=== PATIENT | female | born 1935 | race Caucasian/White ===

== ENCOUNTER → 2017-03-15 | Outpatient (CLI) | payer MEDICARE, BC | END | disposition home or self-care (01) | LOC: GMAM 14:35 | PROVIDERS: ATTEND Family Medicine | DX: E03.9 Hypothyroidism, unspecified (principal) ==

== ENCOUNTER → 2017-07-06 | Outpatient (CLI) | payer MEDICARE, BC | LOC: GMAM 16:30 | PROVIDERS: ATTEND Family Medicine | DX: R82.99 Other abnormal findings in urine (principal); R82.71 Bacteriuria ==

== ENCOUNTER → 2017-10-05 | Outpatient (CLI) | payer MEDICARE, BC | END | disposition home or self-care (01) | LOC: GMAM 10:23 | PROVIDERS: ATTEND Family Medicine | DX: E03.9 Hypothyroidism, unspecified (principal) ==

== ENCOUNTER → 2018-04-27 | Outpatient (CLI) | payer MEDICARE, BC | LOC: GMAM 17:36 | PROVIDERS: ATTEND Family Medicine | DX: R41.82 Altered mental status, unspecified (principal) ==

== ENCOUNTER → 2018-05-02 | Outpatient (CLI) | payer MEDICARE, BC ==
--- NOTE | 2018-05-02 13:25 | MRI ---
EXAM DESCRIPTION: Brain w/wo Contrast: Magnetic Resonance Imaging. CLINICAL HISTORY: ALTERED MENTAL STATUS COMPARISON: MRI scan of the brain without contrast 07/10/2013. TECHNIQUE: Multiplanar, high-field MRI, multiple conventional sequences, without and with gadolinium IV contrast. No adverse reactions. Multiple axial diffusion sequences. FINDINGS: Multiple bilateral small foci of hyperintense FLAIR and T2-weighted signal in the periventricular white matter and lei-white matter junctions of the cerebral hemispheres. . No diffusion restriction or abnormal contrast enhancement. Small focal hyperintensity in the posterior left basal ganglia. No hemorrhage, no cerebral edema, no mass-effect. Normal diffusion and contrast enhancement. Small bilateral foci of hyperintense signal in the sun. Normal signal in the remainder of the brain stem and cerebellar hemispheres. No hemorrhage, no cerebral edema, no mass-effect. Normal contrast enhancement. Concordance of the diffusion and non-diffusion sequences with no evidence of acute or subacute infarction. Cortical sulci, ventricles, and other CSF spaces, and the subdural spaces are normally configured for the patient's age. No effacement or displacement. No midline shift. No extra-axial hemorrhage. Normal contrast enhancement. Normal flow signal void in the major vessels of the [place], and the venous sinuses. IACs are symmetric bilaterally. Normal signal in the bilateral mastoid air cells. No mass effect in the bilateral Cerebellopontine angles. Normal contrast enhancement. Pituitary gland occupies most of the sella. Normal contrast enhancement. Base of the cerebellar tonsils is above the foramen magnum. Diffuse mucoperiosteal thickening in the paranasal sinuses. Air-fluid level in the right maxillary antrum with a small polyp or cyst partially obscured by the fluid. No contrast enhancement. The bony calvarium is intact. IMPRESSION: 1. Bilateral multifocal abnormal white matter signal in the periventricular regions and subcortical white matter is most likely age-related and cerebral microvascular disease. No abnormal contrast enhancement, no mass effect, no diffusion restriction, and no cerebral edema. Similar signal in the central and bilateral sun, and similar focus in the posterior left basal ganglia. This has progressed since the prior study in June 2013. 2. Normal noncontrast MRI diffusion study with no diffusion restriction and no evidence of acute or subacute infarction. 3. Pansinusitis paranasal region appears chronic with acute disease and a polyp/cyst in the right maxillary antrum. Progressed since the prior study in June 2013. Electronically signed by: Gerber Huerta MD 05/02/2018 1:24 PM CDT
== END ==
LOC: MRI 09:00
PROVIDERS: ATTEND Family Medicine
DX: R41.82 Altered mental status, unspecified (principal)

== ENCOUNTER → 2018-08-24 | Outpatient (CLI) | payer MEDICARE, BC | LOC: GMAM 12:28 | PROVIDERS: ATTEND Family Medicine | DX: R06.02 Shortness of breath (principal); J20.8 Acute bronchitis due to other specified organisms ==

== ENCOUNTER → 2018-11-20 | Outpatient (CLI) | payer MEDICARE, BC | LOC: GMAM 14:40 | PROVIDERS: ATTEND Family Medicine | DX: E03.9 Hypothyroidism, unspecified (principal); E83.52 Hypercalcemia ==

== ENCOUNTER → 2019-07-09 | Outpatient (CLI) | payer MEDICARE, BC ==
--- NOTE | 2019-07-09 18:07 | US ---
EXAM DESCRIPTION: Venous,Lower Extremity LT (accession [id number]), Venous,Lower Extremity RT (accession [id number]): Ultrasound. CLINICAL HISTORY: LOCALIZED [facility]DEMA COMPARISON: None Available. TECHNIQUE: Two -dimensional and doppler sonographic evaluation of the deep venous system of the bilateral lower extremities. FINDINGS: Doppler evaluation shows normal color flow and normal phasicity and augmentation of the bilateral common femoral veins, femoral veins, popliteal veins, greater saphenous veins, and peroneal veins,. Also posterior tibial veins. These veins showed normal occlusion with transducer pressure. Two-dimensional survey showed no echogenic clot within these veins. IMPRESSION: Duplex ultrasound evaluation of the bilateral lower extremity deep venous systems showing no evidence of thrombosis. Electronically signed by: Gerber Huerta MD 07/09/2019 6:05 PM CDT
--- NOTE | 2019-07-09 18:07 | US ---
EXAM DESCRIPTION: Venous,Lower Extremity LT (accession [id number]), Venous,Lower Extremity RT (accession [id number]): Ultrasound. CLINICAL HISTORY: LOCALIZED [facility]DEMA COMPARISON: None Available. TECHNIQUE: Two -dimensional and doppler sonographic evaluation of the deep venous system of the bilateral lower extremities. FINDINGS: Doppler evaluation shows normal color flow and normal phasicity and augmentation of the bilateral common femoral veins, femoral veins, popliteal veins, greater saphenous veins, and peroneal veins,. Also posterior tibial veins. These veins showed normal occlusion with transducer pressure. Two-dimensional survey showed no echogenic clot within these veins. IMPRESSION: Duplex ultrasound evaluation of the bilateral lower extremity deep venous systems showing no evidence of thrombosis. Electronically signed by: Gerber Huerta MD 07/09/2019 6:05 PM CDT
== END ==
LOC: US 11:51
PROVIDERS: ATTEND Physician Assistant
DX: R60.0 Localized edema (principal)

== ENCOUNTER → 2019-11-27 | Outpatient (CLI) | payer MEDICARE, BC | LOC: GMAM 14:40 | PROVIDERS: ATTEND Family Medicine | DX: E03.9 Hypothyroidism, unspecified (principal); E11.9 Type 2 diabetes mellitus without complications; I10 Essential (primary) hypertension; E78.2 Mixed hyperlipidemia ==

== ENCOUNTER → 2020-03-11 | Outpatient (CLI) | payer MEDICARE, BC | LOC: GMAM 16:17 | PROVIDERS: ATTEND Family Medicine | DX: D69.0 Allergic purpura (principal) ==

== ENCOUNTER → 2020-03-17 | Outpatient (CLI) | payer MEDICARE, BC | LOC: GMAM 15:34 | PROVIDERS: ATTEND Family Medicine | DX: D69.0 Allergic purpura (principal) ==

== ENCOUNTER → 2020-08-06 | Outpatient (CLI) | payer MEDICARE, BC | LOC: GMAM 11:15 | PROVIDERS: ATTEND Family Medicine | DX: E03.9 Hypothyroidism, unspecified (principal); E11.9 Type 2 diabetes mellitus without complications; E78.2 Mixed hyperlipidemia; E83.52 Hypercalcemia; I10 Essential (primary) hypertension ==